=== PATIENT | male | born 1985 | race Two or more races ===

== ENCOUNTER 2021-05-14 22:27 | Emergency (ER) | payer MEDICAID ==
[~2021-05-14] VITALS: Ht 172.7 cm; Wt 101.9 kg
[~2021-05-14 22:27] MED LIST: CLIN-27 PO; NO HOME MEDS
[2021-05-15] MEDS ORDERED: albuterol 2.5 MG/3 ML nebule NEB ONE (01:15)
[2021-05-15] MEDS ORDERED: dexamethasone sod phosphate 10mg/ml inj IM STA (01:16)
[2021-05-15] MEDS ORDERED: ALBU8HFA PO (02:07)
[2021-05-15 02:36] VITALS: BP 108/58
== END 2021-05-15 02:38 | disposition home or self-care (01) ==
LOC: ER 22:29
DX: J45.901 Unspecified asthma with (acute) exacerbation (principal); R06.02 Shortness of breath; R05.9 Cough, unspecified; R07.89 Other chest pain; Z72.89 Other problems related to lifestyle; Z56.0 Unemployment, unspecified; Z79.2 Long term (current) use of antibiotics
CPT/HCPCS: 71045; 94640; 96372; 99283; J1100; 94760

== ENCOUNTER 2022-01-18 09:33 | Emergency (ER) | payer MEDICAID ==
[~2022-01-18] VITALS: Ht 172.7 cm; Wt 102.3 kg
[2022-01-18 10:18] VITALS: BP 105/77
[2022-01-18] MEDS ORDERED: SULF1TAB49 PO (14:37)
== END 2022-01-18 14:53 | disposition home or self-care (01) ==
LOC: ER 09:34
DX: L03.114 Cellulitis of left upper limb (principal); M79.642 Pain in left hand; F17.200 Nicotine dependence, unspecified, uncomplicated; Z56.0 Unemployment, unspecified; T43.655A Adverse effect of methamphetamines, initial encounter; Y92.89 Other specified places as the place of occurrence of the external cause
CPT/HCPCS: 73130; 99283

== ENCOUNTER 2022-01-23 06:30 | Emergency (ER) | payer MEDICAID ==
[~2022-01-23] VITALS: Ht 172.7 cm; Wt 86.4 kg
[~2022-01-23 06:30] MED LIST changes: +SULF1TAB49 PO
[2022-01-23 06:57] VITALS: BP 126/76
[2022-01-23] MEDS ORDERED: sulfamethoxazole/trimethoprim DS (800/160mg) tablet PO ONE (08:25)
[2022-01-23] MEDS ORDERED: SULF1TAB49 PO (08:25)
== END 2022-01-23 08:58 | disposition home or self-care (01) ==
LOC: ER 06:31
DX: L03.114 Cellulitis of left upper limb (principal); F15.10 Other stimulant abuse, uncomplicated; Z59.00 Homelessness unspecified; Z56.0 Unemployment, unspecified; Z79.899 Other long term (current) drug therapy
CPT/HCPCS: 99283

== ENCOUNTER 2022-02-01 04:03 | Emergency (ER) | payer MEDICAID ==
[~2022-02-01] VITALS: Ht 172.7 cm; Wt 86.4 kg
[~2022-02-01 04:03] MED LIST changes: -SULF1TAB49 PO
[2022-02-01 04:21] VITALS: BP 137/90
== END 2022-02-01 05:13 | disposition left against medical advice (07) ==
LOC: ER 04:05
DX: R10.32 Left lower quadrant pain (principal); Z53.21 Procedure and treatment not carried out due to patient leaving prior to being seen by health care provider

== ENCOUNTER 2023-02-27 13:12 | Emergency (ER) | payer MEDICAID ==
[~2023-02-27] VITALS: Ht 172.7 cm; Wt 98.0 kg
[2023-02-27 14:14] VITALS: PULSE 115; RESP 18; TEMP 98.8; O2SAT 98
[2023-02-27] MEDS ORDERED: dexamethasone sod phosphate 10mg/ml inj IM STA (15:39)
== END 2023-02-27 16:13 | disposition home or self-care (01) ==
LOC: ER 13:13
DX: M79.89 Other specified soft tissue disorders (principal); M79.601 Pain in right arm; F12.10 Cannabis abuse, uncomplicated; Z79.899 Other long term (current) drug therapy
CPT/HCPCS: 96372; 99283; J1100

== ENCOUNTER 2023-03-18 18:39 | Emergency (ER) | payer MEDICAID ==
[~2023-03-18] VITALS: Ht 172.7 cm; Wt 91.6 kg
[2023-03-18 18:53] VITALS: BP 174/84; PULSE 79; RESP 16; TEMP 97.6; O2SAT 93
[2023-03-18] MEDS ORDERED: CEPH-585 PO (18:58)
[2023-03-18] MEDS ORDERED: SULF1TAB49 PO (18:58)
== END 2023-03-18 20:21 | disposition home or self-care (01) ==
LOC: ER 18:39
DX: L03.113 Cellulitis of right upper limb (principal); F15.90 Other stimulant use, unspecified, uncomplicated; Z59.00 Homelessness unspecified
CPT/HCPCS: 99283